=== PATIENT | female | born 1995 | race African-American/Black ===

== ENCOUNTER 2017-12-12 10:37 | Emergency (ER) | payer SELFPAY ==
[~2017-12-12] VITALS: Ht 170.2 cm; Wt 72.0 kg
[2017-12-12] MEDS ORDERED: IBUPROFEN 800MG TABLET PO ONE (12:00)
[2017-12-12 12:50] VITALS: BP 127/60
[2017-12-12] MEDS ORDERED: BACITRACIN ZINC OINT UDPKT TOP ONE (13:00)
== END 2017-12-12 13:04 | disposition home or self-care (01) ==
LOC: ER 11:17
DX: S80.211A Abrasion, right knee, initial encounter (principal); S60.811A Abrasion of right wrist, initial encounter; V49.9XXA Car occupant (driver) (passenger) injured in unspecified traffic accident, initial encounter; Y93.89 Activity, other specified; Y92.89 Other specified places as the place of occurrence of the external cause; Y99.8 Other external cause status
CPT/HCPCS: 73110; 73130; 73562; 81025; 99284